=== PATIENT | female | born 1970 | race Two or more races ===

== ENCOUNTER 2017-05-03 23:34 | Emergency (ER) | payer SELFPAY ==
[~2017-05-03] VITALS: Ht 170.2 cm; Wt 87.0 kg
[2017-05-04] MEDS ORDERED: KETOROLAC 30MG/ML VIAL IV STA (00:49)
[2017-05-04] MEDS ORDERED: ONDANSETRON HCL 4MG/2ML VIAL IV STA (00:49)
[2017-05-04] MEDS ORDERED: METHOCARBAMOL 500MG TABLET PO ONE (01:00)
[2017-05-04 01:27] LABS: BASOPHILS % 0.8 % (0.0-2.0); EOSINOPHILS % 0.9 % (0.0-5.0); HEMATOCRIT. 39.7 % (36.0-48.0); HEMOGLOBIN. 13.4 g/dL (12.0-16.0); LYMPHOCYTES % 26.2 % (20.0-50.0); MEAN CORPUSCULAR HEMOGLOBIN 29.8 pg (28.0-32.0); MEAN CORPUSCULAR VOLUME 88.5 fL (81.0-99.0); MEAN PLATELET VOLUME 9.8 fl (7.4-10.4); MONOCYTES % 6.3 % (2.0-8.0); NEUTROPHILS % 65.8 % (40.0-76.0); PLATELET 207 x1000/uL (130-400); RED BLOOD CELL COUNT 4.49 mill/uL (4.2-5.4); RED CELL DISTRIBUTION WIDTH 13.4 % (11.6-14.6)
[2017-05-04 01:35] LABS: CARBON DIOXIDE 26 mEq/L (21-32); CHLORIDE 106 mEq/L (98-107); TROPONIN I < 0.02 ng/mL (0.00-0.04)
[2017-05-04 05:51] VITALS: BP 129/78
== END 2017-05-04 06:11 | disposition home or self-care (01) ==
LOC: ER 23:34
DX: M54.9 Dorsalgia, unspecified (principal); Z88.8 Allergy status to other drugs, medicaments and biological substances
CPT/HCPCS: 36415; 71010; 80053; 84484; 85025; 85379; 93005; 96374; 96375; 99285; J1885; J2405; Z7610